=== PATIENT | male | born 1945 | race Caucasian/White ===

== ENCOUNTER 2016-08-01 09:22 | Emergency (ER) | payer MEDICARE, OTHER ==
[2016-08-01 09:24] VITALS: BP 155/87; PULSE 50; RESP 16; TEMP 97.7; O2SAT 95
[2016-08-01 09:40] VITALS: BP_SYST 150; BP_SYST 158; BP_DIAS 77; BP_DIAS 83
[2016-08-01] MEDS ORDERED: SODIUM CHLORIDE 0.9% FLUSH 5 ML FLUSH IVF PRN (09:45)
[2016-08-01] MEDS ORDERED: ASPIRIN 81 MG CHEW TAB PO ONE (09:45)
[2016-08-01 09:47] VITALS: O2SAT 96
[2016-08-01 10:34] LABS: AUTOMATED NEUTROPHIL # 4.6 TH/MM3 (1.8-7.7); BASOPHIL # 0.1 TH/MM3 (0-0.2); BASOPHIL % 0.2 % (0.0-2.0); EOSINOPHIL # 0.1 TH/MM3 (0-0.4); EOSINOPHIL % 0.4 % (0.0-4.0); HEMATOCRIT 43.1 % (39.0-51.0); LYMPHOCYTE # 22.8 TH/MM3 (1.0-4.8); MEAN CELL VOLUME 84.6 FL (80.0-100.0); MEAN CORPUSCULAR HEMOGLOBIN 27.8 PG (27.0-34.0); MEAN CORPUSCULAR HGB CONC 32.8 % (32.0-36.0); MONO % 2.2 % (0.0-8.0); NEUT % 16.2 % (16.0-70.0); PLATELET COUNT 139 TH/MM3 (150-450); RED BLOOD COUNT 5.09 MIL/MM3 (4.50-5.90); RED CELL DISTRIBUTION WIDTH 13.8 % (11.6-17.2); WHITE BLOOD COUNT 28.1 TH/MM3 (4.0-11.0)
[2016-08-01 10:36] LABS: HEMO FLAGS AUTO DIFF
--- NOTE | 2016-08-01 10:45 | RADRPT ---
EXAM DATE/TIME: 08/01/2016 09:42 [place] COMPARISON: No previous studies available for comparison. INDICATIONS : Chest pains, cardiac stents 2012 MEDICAL HISTORY : Myocardial infarction. SURGICAL HISTORY : Coronary artery stent. ENCOUNTER: Initial ACUITY: 1 day PAIN SCORE: 10 LOCATION: Bilateral chest FINDINGS: Portable AP view of the chest demonstrates a normal-sized cardiac silhouette. No effusion, consolidat ion, or pneumothorax is visualized. The bones and soft tissues demonstrate no acute abnormality. CONCLUSION: No acute cardiopulmonary abnormality is identified. Cole Ceja MD on August 01, 2016 at 10:43 Board Certified Radiologist. This report was verified electronically.
[2016-08-01 10:46] LABS: APTT (PATIENT) 22.1 SEC (24.3-30.1); INTERNATIONAL NORMALIZED RATIO 1.1 RATIO; PROTHROMBIN TIME - PATIENT 12.6 SEC (9.8-11.6)
[2016-08-01 10:58] LABS: ANION GAP 7 MEQ/L (5-15); BICARBONATE 26.9 MEQ/L (21.0-32.0); BLOOD UREA NITROGEN 11 MG/DL (7-18); CHLORIDE 105 MEQ/L (98-107); GLOMERULAR FILTRATION RATE 73 ML/MIN (>89); SODIUM (NA) 139 MEQ/L (136-145)
[2016-08-01 10:59] LABS: CREATINE KINASE 83 U/L (39-308); POTASSIUM 4.7 MEQ/L (3.5-5.1)
[2016-08-01 11:05] LABS: MYELOCYTES 1 % (0-0); NEUTROPHIL # MANUAL DIFF 5.9 TH/MM3 (1.8-7.7); POLYS (SEG NEUTROPHILS) 20 % (16-70); WBC DIFF SAMPLE 100
[2016-08-01 11:06] LABS: PLATELET ESTIMATE SMEAR LOW (NORMAL); PLATELET MORPHOLOGY NORMAL (NORMAL); SCAN/DIFF FINAL DIFF MANUAL; SMUDGE CELLS PRESENT PRESENT
--- NOTE | 2016-08-01 11:50 | PD ---
HPI Chief Complaint: Chest Pain Time Seen by Provider: 09:32 Travel History International Travel<30 days: No Contact w/Intl Traveler<30days: No Traveled to known affect area: No History of Present Illness HPI Patient is a pleasant 71-year-old male with history of CAD with previous PCI times one in 2012 here with complaint of chest pain. Patient was working out this morning, his typical 45 minute workout at the gym. He was entirely symptom free. On his way home from the gym he had a 2-3 second episode of sharp stabbing substernal chest pain with associated cold sweats. Patient has been symptom-free since. He states that he had a stress test in December and an echo in April that was normal. He recently moved to [place] and has not established care here locally. [facility] Past Medical History Cardiovascular Problems: Yes (STENT) Diabetes: Yes Patient Takes Glucophage: No Hypertension: Yes Triglycerides - High: Yes Past Surgical History Coronary Stent: Yes Social History Alcohol Use: Yes (OCC) Tobacco Use: No Substance Use: No Allergies-Medications (Allergen,Severity, Reaction): Coded Allergies: Demerol (Verified Allergy, Severe, Itching, 08/01/16) Metformin (Verified Allergy, Severe, 08/01/16) MUSCLE ACHES Penicillin (Verified Allergy, Severe, Swelling, 08/01/16) Sulfa (Verified Allergy, Intermediate, 08/01/16) HEADACHE Review of Systems Except as stated in HPI: all other systems reviewed are Neg Physical Exam Narrative GENERAL: Well-appearing male in no acute distress SKIN: Warm and dry. HEAD: Normocephalic. EYES: No scleral icterus. No injection or drainage. ENT: Mucous membranes pink and moist. NECK: Supple CARDIOVASCULAR: Regular rate and rhythm. No murmur appreciated. RESPIRATORY: No accessory muscle use. Clear to auscultation. Breath sounds equal bilaterally. GASTROINTESTINAL: Abdomen soft, non-tender, nondistended. MUSCULOSKELETAL: No obvious deformities No edema. NEUROLOGICAL: Awake and alert. Normal speech. PSYCHIATRIC: Appropriate mood and affect; insight and judgment normal. Data Data Last Documented VS Vital Signs Date Time Temp Pulse Resp B/P Pulse Ox O2 Delivery O2 Flow Rate FiO2 08/01/16 09:47 96 Room Air 08/01/16 09:40 158/77 150/83 08/01/16 09:24 97.7 50 16 Orders Electrocardiogram (08/01/16 09:33) Basic Metabolic Panel (Bmp) (08/01/16 09:33) Ckmb (Isoenzyme) Profile (08/01/16 09:33) Complete Blood Count With Diff (08/01/16 09:33) Magnesium (Mg) (08/01/16 09:33) Prothrombin Time / Inr (Pt) (08/01/16 09:33) Act Partial Throm Time (Ptt) (08/01/16 09:33) Troponin I (08/01/16 09:33) Chest, Single Ap (08/01/16 09:33) Ecg Monitoring (08/01/16 09:33) Bilateral Bp Monitoring (08/01/16 09:33) Iv Access Insert/Monitor (08/01/16 09:33) Oximetry (08/01/16 09:33) Oxygen Administration (08/01/16 09:33) Aspirin Chew (Aspirin Chew) (08/01/16 09:45) Sodium Chloride 0.9% Flush (Ns Flush) (08/01/16 09:45) Labs Laboratory Tests Test 08/01/16 10:20 White Blood Count 28.1 TH/MM3 Red Blood Count 5.09 MIL/MM3 Hemoglobin 14.2 GM/DL Hematocrit 43.1 % Mean Corpuscular Volume 84.6 FL Mean Corpuscular Hemoglobin 27.8 PG Mean Corpuscular Hemoglobin 32.8 % Concent Red Cell Distribution Width 13.8 % Platelet Count 139 TH/MM3 Mean Platelet Volume 9.3 FL Neutrophils (%) (Auto) 16.2 % Lymphocytes (%) (Auto) 81.0 % Monocytes (%) (Auto) 2.2 % Eosinophils (%) (Auto) 0.4 % Basophils (%) (Auto) 0.2 % Neutrophils # (Auto) 4.6 TH/MM3 Lymphocytes # (Auto) 22.8 TH/MM3 Monocytes # (Auto) 0.6 TH/MM3 Eosinophils # (Auto) 0.1 TH/MM3 Basophils # (Auto) 0.1 TH/MM3 CBC Comment AUTO DIFF Differential Total Cells 100 Counted Neutrophils % (Manual) 20 % Lymphocytes % 75 % Monocytes % 4 % Neutrophils # (Manual) 5.9 TH/MM3 Myelocytes 1 % Differential Comment FINAL DIFF MANUAL Smudge Cells PRESENT Platelet Estimate LOW Platelet Morphology Comment NORMAL Prothrombin Time 12.6 SEC Prothromb Time International 1.1 RATIO Ratio Activated Partial 22.1 SEC Thromboplast Time Sodium Level 139 MEQ/L Potassium Level 4.7 MEQ/L Chloride Level 105 MEQ/L Carbon Dioxide Level 26.9 MEQ/L Anion Gap 7 MEQ/L Blood Urea Nitrogen 11 MG/DL Creatinine 1.01 MG/DL Estimat Glomerular Filtration 73 ML/MIN Rate Random Glucose 129 MG/DL Calcium Level 9.0 MG/DL Magnesium Level 2.0 MG/DL Total Creatine Kinase 83 U/L Troponin I LESS THAN 0.02 NG/ML MDM Medical Decision Making Medical Screen Exam Complete: Yes Emergency Medical Condition: Yes Medical Record Reviewed: Yes Differential Diagnosis 71-year-old male with history of CAD, HTN, HLD, DM here with complaint of a 2-3 minutes second spell of sharp chest pain while at rest. Differential includes atypical chest pain, ACS, GERD, esophageal spasm and less likely PE, dissection. Narrative Course Patient placed on monitor, IV established and blood obtained. A twelve-lead EKG shows sinus bradycardia, rate 50 with first-degree AV block. No notable ST abnormalities, otherwise normal intervals. Patient was given aspirin, again he is pain-free at this time. Portal chest x-ray was obtained that by my read shows no acute abnormalities. CBC, BMP, magnesium, CK-MB, troponin, coags were obtained and notable for WBC 28.1. Patient notes a history of CLL, states his white count typically runs from 15-30. We were able to obtain his records from [place] showing a negative nuclear stress test in December and a normal cardiac echo in April. Patient's symptoms sound fairly atypical. I offered to have a repeat 2 hour troponin will patient was here in the emergency department. He has remained symptom free and is requesting to be discharged at this time. Diagnosis Primary Impression: Atypical chest pain Referrals: Primary Care Physician call for appointment Additional Instructions: Call to establish primary care physician and cmm programmer locally. Med/Other Pt SpecificInfo: No Change to Meds Disposition: 01 DISCHARGE HOME Condition: Stable Leydi Penn MD Aug 01, 2016 11:50
--- NOTE | 2016-08-01 15:08 | EKG ---
Date Performed: 08/01/2016 Time Performed: 09:32:29 PTAGE: 71 years EKG: SINUS BRADYCARDIA WITH FIRST DEGREE AV BLOCK ABNORMAL ECG NO PREVIOUS TRACING DOCTOR: Osmany Abarca Interpretating Date/Time 08/01/2016 15:06:48
== END 2016-08-01 12:54 | disposition home or self-care (01) ==
LOC: NEPA 09:22
DX: R07.89 Other chest pain (principal); I10 Essential (primary) hypertension; I25.10 Atherosclerotic heart disease of native coronary artery without angina pectoris; E11.9 Type 2 diabetes mellitus without complications; R00.1 Bradycardia, unspecified
CPT/HCPCS: 71010; 80048; 82550; 83735; 84484; 85007; 85027; 85610; 85730; 93005